=== PATIENT | female | born 1960 | race Caucasian/White ===

== ENCOUNTER 2020-11-19 14:12 | Emergency (ER) | payer OTHER, SELFPAY ==
--- NOTE | ~2020-11-19 | XR_ITS ---
EXAMINATION: XR abdomen/kub 1V DATE: 11/19/2020 14:56 INDICATION: Bilateral lower abdominal pain. TECHNIQUE: A supine view of the abdomen on 2 radiographs was obtained. COMPARISON: None. FINDINGS: There are no dilated loops of bowel. There are 2 calcifications in left pelvis with the lar belkis measuring 8 mm. Surgical clips overlie right inguinal region. IMPRESSION: 1. Normal bowel gas pattern. 2. Two calcifications in left pelvis, most likely phleboliths. Ureteral stones cannot be excluded. Reviewed, dictated and finalized at location A.
--- NOTE | 2020-11-19 14:25 | ED.GENADULT ---
HPI - General Adult General Chief complaint: Abdominal Pain Stated complaint: Abdominal pain Time Seen by Provider: 11/19/20 14:34 Source: patient and RN notes reviewed Mode of arrival: ambulatory Limitations: no limitations History of Present Illness HPI narrative: 60-year-old female presents with complaints of lower abdomen pain for the past 2 days. ?Sandi reports abdominal cramping resembling her flare-ups of Diverticulitis attacks. No treatment. ?No significant pelvic pain. ?No vaginal discharge. ?No concerns for STDs. ?No fever or chills. ?No nausea, vomiting, or diarrhea with abdominal pain. Tolerating liquids well. No flank pain. ?No exacerbating factors consist of palpation. ?Denies dysuria, hematuria, and vaginal bleeding. ?No blood in stool or constipation. Last BM today, small but normal. ?Denies chest pain, back pain, headache, and dizziness. Urine output within normal limits. ?Remains active. ?The patient reports she has not been diagnosed with COVID-19. The patient reports she received 2 [employer] COVID-19 vaccines. ?The patient reports she is not waiting for the results of a COVID-19 lab test. ?The patient reports she does not have weakness or fatigue. The patient reports she does not have a new or worsening cough or shortness of breath. The patient reports she does not have any loss of taste or smell. Sandi reports here visiting from [place] since 11/18/2020.? Denies concerns for COVID-19 or exposures. ?At this time, the patient is not suspected of having COVID-19. Complaints of sore throat for 1 day. ?Sandi reports waking up today with a sore throat, increasing throughout the day. ?No treatment. ?No high fevers, drooling, neck or throat swelling. ?Pain is bilateral. ?Hurts to swallow. ?Exacerbation factors consist of eating and drinking. ?No rhinorrhea or nasal congestion. ?No voice change. Denies difficulty swallowing, jaw pain, dental pain, facial pain, foreign body sensation, and rash.? Some parts of this dictation were generated by voice recognition software and may contain typographical and/or grammatical inaccuracies. Related Data Home Medications Medication Instructions Recorded Confirmed bupropion HCl 300 mg PO DAILY 11/19/20 11/19/20 levothyroxine [Synthroid] 88 mcg DAILY 11/19/20 11/19/20 progesterone micronized 100 mg HS 11/19/20 11/19/20 Allergies Allergy/AdvReac Type Severity Reaction Status Date / Time No Known Allergies Allergy Verified 11/19/20 14:49 Review of Systems Review of Systems: Narrative: CONSTITUTIONAL: Denies fever, chills, sweats. EYES: Denies visual changes, redness, discharge. ENT: Denies rhinorrhea, congestion, otalgia. Complains of sore throat. CARDIOVASCULAR: Denies chest pain, palpitations, edema. RESPIRATORY: Denies dyspnea, wheezing, cough. GASTROINTESTINAL: Denies diarrhea, nausea, decreased appetite, vomiting. Complaints of abdominal pain. GENITOURINARY: Denies dysuria, hematuria, abnormal discharge. SKIN: Denies rash or itching. MUSCULOSKELETAL: Denies acute back pain, joint pain, or myalgia. NEUROLOGIC: Denies numbness or focal weakness. PSYCHIATRIC: Denies anxiety or depression. All systems reviewed & are unremarkable except as noted in HPI and below. [facility] Past Medical History Medical History (Updated 11/25/20 @ 13:54 by BOSSMAN Gage) Depression Hypothyroidism Obese Post-menopausal Surgical History Surgical History (Updated 11/25/20 @ 13:50 by BOSSMAN Gage) History of bilateral breast reduction surgery History of thyroidectomy Family History Family History (Updated 11/25/20 @ 13:51 by BOSSMAN Gage) Father Multiple sclerosis Mother Depression Social History Social History (Updated 11/25/20 @ 13:53 by BOSSMAN Gage) Smoking status: Former smoker Tobacco type: cigarettes Second hand tobacco smoke exposure: No Smoking end date: 05/28/90 Alcohol intake: current Substance
[2020-11-19 14:33] VITALS: BP 117/75; PULSE 77; RESP 18; TEMP 37.1; O2SAT 96
[2020-11-19 14:36] VITALS: BP 117/75; PULSE 77; RESP 18; TEMP 37.1; O2SAT 96
== END 2020-11-19 15:19 | disposition home or self-care (01) ==
PROVIDERS: Emergency Provider Nurse Practitioner Family
DX: K57.90 Diverticulosis of intestine, part unspecified, without perforation or abscess without bleeding (principal); J00 Acute nasopharyngitis [common cold]; J01.90 Acute sinusitis, unspecified
CPT/HCPCS: 74018; 99203; G0463